=== PATIENT | male | born 1990 | race African-American/Black ===

== ENCOUNTER 2021-09-04 19:47 | Emergency (ER) | payer BC, OTHER ==
[2021-09-04] MEDS ORDERED: Ketorolac Tromethamine 30 MG/ML VIAL ONE (20:23)
== END 2021-09-04 21:55 | disposition home or self-care (01) ==
LOC: CSHERS 19:47
DX: M25.561 Pain in right knee (principal); F17.210 Nicotine dependence, cigarettes, uncomplicated
CPT/HCPCS: 96372; J1885

== ENCOUNTER 2022-03-23 14:55 | Emergency (ER) | payer BC | END 2022-03-23 18:21 | disposition home or self-care (01) | LOC: CSHERS 14:55 | DX: J06.9 Acute upper respiratory infection, unspecified (principal); F17.210 Nicotine dependence, cigarettes, uncomplicated | CPT/HCPCS: 87804; 99283 ==

== ENCOUNTER 2023-07-23 08:49 | Emergency (ER) | payer BC ==
[2023-07-23] MEDS ORDERED: Boostrix 0.5 ML (Tdap) VIAL (>/=7 yrs of age) ONE (09:13)
== END 2023-07-23 09:41 | disposition home or self-care (01) ==
LOC: CSHERS 08:49
DX: S01.412A Laceration without foreign body of left cheek and temporomandibular area, initial encounter (principal); F17.210 Nicotine dependence, cigarettes, uncomplicated; Z23 Encounter for immunization; W26.8XXA Contact with other sharp object(s), not elsewhere classified, initial encounter
CPT/HCPCS: 12011; 90471; 90715

== ENCOUNTER 2023-07-24 06:14 | Emergency (ER) | payer BC ==
[2023-07-24] MEDS ORDERED: Ibuprofen 200 MG TAB ONE (06:48)
== END 2023-07-24 06:50 | disposition home or self-care (01) ==
LOC: CSHERS 06:14
DX: S01.412D Laceration without foreign body of left cheek and temporomandibular area, subsequent encounter (principal); F17.210 Nicotine dependence, cigarettes, uncomplicated; W26.8XXD Contact with other sharp object(s), not elsewhere classified, subsequent encounter
CPT/HCPCS: 99283

== ENCOUNTER 2024-06-25 12:57 | Emergency (ER) | payer BC ==
[2024-06-25 13:57] LABS: Bilirubin Neg (Negative); Blood, Urine 25 (Negative); Clarity Clear (Clear); Glucose, Urine (Dipstick) Normal (Negative); Ketone, Urine Negative (Negative); Leukocyte 25 (Negative); Nitrite Negative (Negative); Protein, Urine (Dipstick) Negative (Neg-Trace); Urobilinogen Normal mg/dL (Less than 2)
[2024-06-25 14:14] LABS: Bacteria/HPF Rare-Few HPF (None Seen); CAUTI Indications for Culture Dysuria,urgency,freq; RBC/HPF None Seen HPF (0-3); Squamous Epithelial 0-3 HPF (0-3); WBC/HPF 0-3 HPF (0-3)
[2024-06-25 14:15] LABS: Urine Culture Reflex No No
[2024-06-25] MEDS ORDERED: cefTRIAXone (ROCEPHIN) 500 MG VIAL ONE (14:41)
[2024-06-25] MEDS ORDERED: Sterile Water 10 ML ONE (14:42)
[2024-06-26 07:25] LABS: Chlam.trachomatis by PCR,Urine Not Detected (NotDetected); GC N.gonorrhoeae PCR,UrineVOID Not Detected (NotDetected)
== END 2024-06-25 15:18 | disposition home or self-care (01) ==
LOC: CSHERS 12:57
DX: N39.0 Urinary tract infection, site not specified (principal); F17.210 Nicotine dependence, cigarettes, uncomplicated
CPT/HCPCS: 81001; 87491; 87591; 96372; 99283; J0696